=== PATIENT | female | born 1980 | race Caucasian/White ===

== ENCOUNTER 2023-11-01 14:40 | Emergency (ER) | payer OTHER ==
--- NOTE | 2023-11-01 14:52 | ED ---
General Adult HPI - General Chief complaint: Wound/Laceration Stated complaint: [facility] R Thumb Laceration Time Seen by Provider: 11/01/23 14:43 Source: patient, EMS Mode of arrival: EMS Limitations: no limitations - History of Present Illness Initial comments: Dictation was produced using [employer] dictation software. please excuse any grammatical, word or spelling errors. 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 She should her hand got stuck into the press and the tip of her right thumb became amputated. Patient does not know when her last tetanus was. Patient denies any other complaints. The ROS documented in this emergency department record has been reviewed and confirmed by me. Those systems with pertinent positive or negative responses have been documented in the HPI. All other systems are other negative and/or noncontributory. - Related Data Previous Rx's Medication Instructions Recorded Cephalexin [Keflex] 500 mg PO Q12HR 7 Days #14 cap 11/01/23 Allergies Allergy/AdvReac Type Severity Reaction Status Date / Time codeine AdvReac Nausea & Verified 11/01/23 15:12 Vomiting Review of Systems ROS Statement: Those systems with pertinent positive or pertinent negative responses have been documented in the HPI. ROS Other: All systems not noted in ROS Statement are negative. Past Medical History Past Medical History: No Reported History History of Any Multi-Drug Resistant Organisms: None Reported Additional Past Surgical History / Comment(s): ablation Smoking Status: Never smoker Past Alcohol Use History: Occasional, Rare Past Drug Use History: None Reported General Exam - General Exam Comments Initial Comments: General: Well-appearing, nontoxic, no acute distress. Head: Normocephalic, atraumatic Eyes: PERRLA, EOMI ENT: Airway patent Chest: Nonlabored breathing Skin: No visual rash, normal skin tone Neuro: Alert and oriented 3 Musculoskeletal: No gross abnormalities Right hand: Tip of the right thumb is amputated with exposed tissue Limitations: no limitations Course Vital Signs 11/01/23 14:49 Temperature 97.8 F Pulse Rate 70 Respiratory 16 Rate Blood Pressure 130/77 O2 Sat by Pulse 100 Oximetry Medical Decision Making - Medical Decision Making Was pt. sent in by a medical professional or institution (Dr., PA, LINE SERVER, urgent care, hospital, or fci...) When possible be specific @ -No Did you speak to anyone other than the patient for history (EMS, parent, family, police, friend...)? What history was obtained from this source @ -Some history obtained from EMS as described above Did you review nursing and triage notes (agree or disagree)? Why? @ -I reviewed and agree with nursing and triage notes Were old charts reviewed (outside hosp., previous admission, EMS record, old EKG, old radiological studies, urgent care reports/EKG's, fci records)? Report findings @ -No old charts were reviewed Differential Diagnosis (chest pain, altered mental status, abdominal pain women, abdominal pain men, vaginal bleeding, musculoskeletal, weakness, fever, dyspnea, syncope, headache, dizziness, GI bleed, back pain, seizure, CVA, palpatations, mental health)? @ -Not applicable EKG interpreted by me (3pts min.). @ -None done X-rays interpreted by me (1pt min.). @ -Hand x-ray shows soft tissue amputation of the tip of the thumb. CT interpreted by me (1pt min.). @ -None done U/S interpreted by me (1pt. min.). @ -None done What testing was considered but not performed or refused? (CT, X-rays, U/S, labs)? Why? @ -None What meds were considered but not given or refused? Why? @ -None Did you discuss the management of the patient with other professionals (professionals i.e. SASHA Souza, LINE SERVER, lab, RT, psych nurse, addiction social worker, rock cutter, teacher, event security officer, airport location manager)? Give summary @ -No Was smoking cessation discussed for >3mins.? @ -No Was critical care preformed (if so, how long)? @ -No Were there social determinants of health that impacted care today? How? (Homelessness, low income, unemployed, alcoholism, drug addiction, transportation, low edu. Level, literacy, decrease access to med. care, long term, rehab)? @ -No Was there de-escalation of care discussed even if they declined (Discuss DNR or withdrawal of care, Hospice)? DNR status @ -No What co-morbidities impacted this encounter? (DM, HTN, Smoking, COPD, CAD, Cancer, CVA, ARF, Chemo, Hep., AIDS, mental health diagnosis, sleep apnea, morbid obesity)? @ -None Was patient admitted / discharged? Hospital course, mention meds given and route, prescriptions, significant lab abnormalities, going to OR and other pertinent info. @ -42-year-old female presents to the emergency department for accidental amputation of the tip of the right thumb. Vital signs upon arrival are within acceptable limits. X-ray shows minimal disruption to the tuft of the distal right first digit. Tetanus updated. Wound irrigated. Injured area covered with Gelfoam. Wound is dressed. Finger splint placed over top. Patient prescribed antibiotics. Patient would like to take [id number] pain medications for symptoms. Discharged with referral to hand surgeon. Undiagnosed new problem with uncertain prognosis? @ -No Drug Therapy requiring intensive monitoring for toxicity (Heparin, Nitro, Insulin, Cardizem)? @ -No Were any procedures done? @ -No Diagnosis/symptom? Acute, or Chronic, or Acute on Chronic? Uncomplicated (without systemic symptoms) or Complicated (systemic symptoms)? @ -Traumatic distal thumb amputation Side effects of treatment? @ -No Exacerbation, Progression, or Severe Exacerbation? @ -No Poses a threat to life or bodily function? How? (Chest pain, [place], [place], pneumonia, PE, COPD, DKA, ARF, appy, cholecystitis, CVA, Diverticulitis, Homicidal, Suicidal, threat to staff... and all critical care pts) @ -yes Disposition Clinical Impression: Finger amputation, traumatic Disposition: HOME SELF-CARE Condition: Fair Instructions (If sedation given, give patient instructions): Finger Amputation (ED) Prescriptions: Cephalexin [Keflex] 500 mg PO Q12HR 7 Days #14 cap Is patient prescribed a controlled substance at d/c from ED?: Yes If prescribed controlled substance>3 days was MAPS reviewed?: Prescribed <3 Days Referrals: Isaias Diaz DO [Doctor of Osteopathic Medicine] - 1-2 days Cintia Pratt DO [Doctor of Osteopathic Medicine] - 1-2 days Time of Disposition: 16:27
[2023-11-01 15:06] VITALS: RESP 16; TEMP 97.8
--- NOTE | 2023-11-01 15:23 | XR ---
EXAMINATION TYPE: XR hand complete RT DATE OF EXAM: 11/01/2023 COMPARISON: NONE HISTORY: 42-year-old female crush injury today, pain, amputated thumb TECHNIQUE: 3 views FINDINGS: There is focal soft tissue amputation of the distal aspect of the thumb and distal tarsal c ortex. No retained radiopaque foreign body. No other acute fracture, subluxation, dislocation. IMPRESSION: Soft tissue amputation of the tip of the thumb. Minimal cortex of the distal phalangeal tuft has also been lost.
[2023-11-01] MEDS: DIPH,PERTUS(ACELL)TETVAC-LF 0.5 ML VIAL IM ONE (15:37)
[2023-11-01 17:30] VITALS: BP 122/76; PULSE 57
== END 2023-11-01 17:00 | disposition home or self-care (01) ==
LOC: EC 14:40
DX: S68.011A Complete traumatic metacarpophalangeal amputation of right thumb, initial encounter (principal); Z88.5 Allergy status to narcotic agent; Z23 Encounter for immunization; W23.0XXA Caught, crushed, jammed, or pinched between moving objects, initial encounter
CPT/HCPCS: 90471; 90715; 99283